=== PATIENT | female | born 1990 | race Caucasian/White ===

== ENCOUNTER 2017-10-21 07:46 | Inpatient (IN) ==
--- NOTE | 2017-10-21 06:03 | OB/GYN History & Physical ---
Date of Encounter: 10/21/17 Time of Encounter: 05:46 Assessment and Plan (1) 40 weeks gestation of Current visit: Yes Status: Acute Labor evaluation (2) Rh negative status during in third trimester Current visit: Yes Status: Acute Both patient and FOB are O negative (3) Gestational diabetes Current visit: Yes Status: Acute Accuchecks recommended in labor Nursery to be notified Qualifiers: Gestational diabetes mellitus control: diet-controlled Trimester: third trimester Qualified Code(s): O24.410 - Gestational diabetes mellitus in , diet controlled History of Present Illness Chief complaint: Spontaneous Labor HPI: Ms. Hudson is a 27 year old female at 40w5d presents to labor and delivery with complaints with contractions increasing in intensity. Patient reports "labor started yesterday at 0500"). Patient denies LOF or VB. Patient reports + FM. Patient is requesting as little intervention as necessary. Patient declined labs in . Labs were completed in 2014. Patient is also a diet controlled GDM. Blood type: O Negative GBS: Negative Past Med Surg Social Fam HX - Past Medical History Source: patient Medical history: no medical history Psychiatric history: no psych history - Past Surgical History Additional surgical history: wisdom teeth, D&C - Social History Smoking Status: Never smoker Alcohol use: none Drug use: none Obstetrical History - Pregnancies : 2 Para: 0 Term: 0 : 0 Ab's: 1 Livin Medications and Allergies Vit/Iron Fumarate/FA [ Tablet] 1 tab PO DAILY 10/21/17 [History ] 3 Allergy/AdvReac Type Severity Reaction Status Date / Time No Known Allergies Allergy Verified 10/21/17 05:43 Review of System OB - Constitutional Constitutional ROS IM: no fatigue, no headache(s) - Gastrointestinal Gastrointestinal: no abdominal pain, no constipation, no diarrhea, no heartburn , no nausea, no vomiting - Genitourinary Genitourinary: no abnormal vaginal bleeding, no dysuria, no flank pain, no urinary frequency, no urinary urgency, no vaginal discharge, no vaginal odor, no vaginal pruritis Exam - Constitutional Constitutional: well developed, well nourished, no acute distress, average body habitus - HEENT HEENT: Normocephaly, Mucus Membranes Moist - Neck Neck exam: full ROM, supple - Lungs Respiratory exam: CTAB - Cardiovascular Cardiovascular exam: RRR, +S1, +S2 - Abdomen Abdomen: Present: bowel sounds normal, gravid, non tender - Extremities Extremities exam: full ROM, normal capillary refill, pedal edema (1+ bilateral lower extremeties) Deep Tendon Reflex Grade: 2+ Normal - Vagina Vagina: Present: normal moisture - Cervix Dilation: 5 Effacement: 90 Station: -1 - Uterus Uterus exam: Present: normal size, normal contour - Anus/Rectum Anus/Rectum: Present: normal perianal skin - Comments Comments: FHR 125 bpm moderate variability +15x15 accels no decels noted. Contractions 1.5 -6 min apart. Cat 1 tracing. Results All other labs normal. - VTE Reasons for not Prescribing Prophylaxis: Treatment not Indicated - Low risk for VTE
[2017-10-21 06:23] LABS: Amphetamine Screen,Urine Negative ng/mL (Cutoff=1000); Barbiturate Screen,Urine Negative ng/mL (Cutoff=200); Benzodiazepines Screen,Urine Negative ng/mL (Cutoff=200); Cannabinoid Screen,Urine Negative ng/mL (Cutoff = 50); Cocaine Screen,Urine Negative ng/mL (Cutoff= 300); Opiate Screen,Urine Negative ng/mL (Cutoff=300); Phencyclidine Screen,Urine Negative ng/mL (Cutoff=25)
[~2017-10-21 07:46] MED LIST: Famotidine 20 MG/2 ML VIAL IVP PRN; Naloxone 0.4 MG/ML INJ IVP PRN; Ondansetron 4 MG/2 ML VIAL IVP PRN; Ringers Solution, Lactated 1,000 ML IVC SCH
[2017-10-21 08:26] LABS: Basophils % 0.1 %; Eosinophils % 0.2 %; Hematocrit 37.8 % (35.3-44.9); Hemoglobin 13.3 g/dL (11.5-15.4); Immature Granulocytes % 0.4 % (0-4); Lymphocytes # 1.3 K/mcL (0.6-4.6); Lymphocytes % 11.5 %; Mean Corpuscular HGB Conc 35.2 g/dL (31.6-35.5); Mean Corpuscular Hemoglobin 33.5 pg (28.0-33.3); Mean Corpuscular Volume 95.2 fL (83.0-100.0); Mean Platelet Volume 9.9 fL (9.4-12.4); Monocytes # 0.5 K/mcL (0.0-1.3); Monocytes % 4.7 %; Neutrophils # 9.3 K/mcL (1.6-8.9); Platelet Count 182 K/mcL (140-400); Red Blood Count 3.97 M/mcL (3.82-4.97); Red Cell Distribution Width 14.1 % (11.5-14.5); Segmented Neutrophils % 83.1 %
--- NOTE | 2017-10-21 12:07 | OB Labor Progress Note ---
Date of Encounter: 10/21/17 Time of Encounter: 10:00 Labor Progress Note - Subjective Subjective: Pt aware of contractions. Reports feeling them every 2-3 minutes. Rates them 5- 6/10. 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
--- NOTE | 2017-10-21 12:09 | OB Labor Progress Note ---
Date of Encounter: 10/21/17 Time of Encounter: 12:07 Labor Progress Note - Subjective Subjective: Reports increase discomfort with contractions - Cervix Cervix: 9/100/+1 - Heart Tones Heart Tones: Auscultation 120s/no decelerations/accelerations present - Gerald Gerald: Reports contractions every minute - Interventions Interventions: SVE Position changes - Plan Plan: Continue expectant management Encourage frequent position changes including toilet and birthing ball Pitocin discussed and patient declines at this time Anticipate vaginal delivery
[2017-10-21] MEDS ORDERED: *HR* Oxytocin 10 UNIT/ML VIAL IM ONE (12:30)
--- NOTE | 2017-10-21 16:52 | OB/GYN Procedure Note ---
Delivery - Delivery Date: 10/21/17 Provider: Anusha Granados Intrapartum events: prolonged labor- > = 20hr Delivery induction: none Delivery monitor: external FHT ([place]) Anesthesia: local Quantitated Blood Loss: 300 - Infant (s) A Infant Delivery Date: 10/21/17 Infant Delivery Time: 15:56 Presentation: vertex Position: OA Route of delivery: Gender: Female Viability: Viable Pounds: 8 Ounces: 4 Weight Gram: 3.73 kg at 1 minute: 8 at 5 mins: 9 Shoulder Dystocia: not encountered Specimens collected: cord blood Placenta: spontaneous Cord: 3 umbilical vessels - Repair Episiotomy: none Laceration Description: Perineal - 1st Degree (3-0 vicryl repaired), Superficial - Complications Delivery complications: none Delivery comments: This is a 27-year-old G2 now P1 who is admitted for active labor. She progressed spontaneously to the second stage of labor she pushed for about an hour and a half. She delivered a viable female , OA over a first-degree laceration. The infant delivered with mom in hands and knees position. Mom then spontaneously turned over to her back and placed the skin to skin underneath her gown. No nuchal cord was identified and no shoulder dystocia was encountered. scores were 8 at 1 minute and 9 at 5 minutes. The weighed 8 lbs. 4 oz. (3730g). The placenta delivered (Guillen) spontaneously, intact, with a three-vessel cord. Inspection revealed a very minor first-degree laceration. The laceration was repaired with a 3-0 Vicryl. The uterus was firm with no active bleeding. The repair was done under local anesthesia. EBL was 300mL. Placenta is to be taken home by the family per the request. Umbilical artery blood gases were not sent. There were no complications during the procedure. Mom and baby are skin to skin and nursing following delivery. - Disposition Mom disposition: stable in LDR O[place]Brien disposition: stable in LDR
[2017-10-21] MEDS ORDERED: Oxytocin 20 units/ LR 1000 mL 20 UNIT/1,000 ML BAG IVC SCH (20:25)
[2017-10-21] MEDS ORDERED: Benzocaine/Menthol 56 GM AEROSOL SPRAY TP PRN (20:25)
[2017-10-21] MEDS ORDERED: Acetaminophen 325 MG TABLET PO PRN (20:25)
[2017-10-21] MEDS ORDERED: Ibuprofen 600 MG TABLET PO PRN (20:25)
[2017-10-22 08:02] VITALS: BP 103/64
[2017-10-22] MEDS ORDERED: Prenatal Vit/FA 1 EACH TABLET PO SCH (09:00)
--- NOTE | 2017-10-22 10:35 | Discharge Summary ---
Date of Encounter: 10/22/17 Time of Encounter: 10:33 - Discharge Diagnosis (1) Vaginal delivery Priority: Primary Status: Acute Comments: Stable, meeting PP milestone, pain well managed, , desires discharge. - Discharge Medications Home Medications: Vit/Iron Fumarate/FA [ Tablet] 1 tab PO DAILY 10/21/17 [History ] Acetaminophen [Tylenol] 650 mg PO Q6HR PRN tablet 10/22/17 [Rx] Benzocaine/Menthol Elbert [Dermoplast Elbert] 1 appl TP QID PRN aerosol 10/22/17 [Rx] Ibuprofen [Motrin] 600 mg PO Q6HR PRN tablet 10/22/17 [Rx] Vit/FA 1 each PO DAILY tablet 10/22/17 [Rx] Allergies/Adverse Reactions: 3 Allergy/AdvReac Type Severity Reaction Status Date / Time No Known Allergies Allergy Verified 10/21/17 05:43 Data Procedures and tests throughout hospitalization: Laboratory Tests 10/21/17 10/21/17 10/21/17 05:30 07:57 19:01 WBC 11.2 H RBC 3.97 Hgb 13.3 Hct 37.8 MCV 95.2 MCH 33.5 H MCHC 35.2 RDW 14.1 Plt Count 182 MPV 9.9 Immature Gran % 0.4 Seg Neutrophils % 83.1 Lymphocytes % 11.5 Monocytes % 4.7 Eosinophils % 0.2 Basophils % 0.1 Neutrophils # 9.3 H Lymphocytes # 1.3 Monocytes # 0.5 Eosinophils # 0.0 Basophils # 0.0 POC Glucose 162 H Urine Opiates Screen Negative Ur Barbiturates Screen Negative Ur Phencyclidine Scrn Negative Ur Amphetamines Screen Negative U Benzodiazepines Scrn Negative Urine Cocaine Screen Negative U Marijuana (THC) Screen Negative Ur Drug Screen Interp See Below Labs on day of discharge: Labs from last 24 hours 10/21/17 19:01 POC Glucose 162 H Date of admission: 10/21/17 09:29 Primary care physician: Dulce Pete CNP Consults: 10/21/17 20:25 Consult to Package Checker [CONS] Routine Comment: Vaginal delivery, consult needed Discharging clinician: Henny Wayne Anticipated date of discharge: 10/22/17 - Patient Status Disposition: Home, Self-Care Condition: Good Functional capacity at discharge: independent ambulation Overall status at discharge: patient is back to baseline - Discharge Instructions Follow Up With: Dulce Pete CNP [Primary Care Provider] - Anusha Granados [Advanced Practice Nurse] - - Diet and Activity Activity: resume usual activities as tolerated Diet: regular diet Hospital Course Reason for admission: active labor Delivery: Episiotomy: none Laceration: 1st degree Other procedures: none complications: none Discharge diagnosis: IUP at term delivered baby: female Hospital course: Delivery - Delivery Date: 10/21/17 Provider: Anusha Granados Intrapartum events: prolonged labor- > = 20hr Delivery induction: none Delivery monitor: external FHT ([place]) Anesthesia: local Quantitated Blood Loss: 300 - (s) Infant A Delivery Date: 10/21/17 Delivery Time: 15:56 Presentation: vertex Position: OA Route of delivery: Gender: Female Viability: Viable Pounds: 8 Ounces: 4 Weight Gram: 3.73 kg at 1 minute: 8 at 5 mins: 9 Shoulder Dystocia: not encountered Specimens collected: cord blood Placenta: spontaneous Cord: 3 umbilical vessels - Repair Episiotomy: none Laceration Description: Perineal - 1st Degree (3-0 vicryl repaired), Superficial - Complications Delivery complications: none Delivery comments: This is a 27-year-old G2 now P1 who is admitted for active labor. She progressed spontaneously to the second stage of labor she pushed for about an hour and a half. She delivered a viable female infant, OA over a first-degree laceration. The delivered with mom in hands and knees position. Mom then spontaneously turned over to her back and placed the skin to skin underneath her gown. No nuchal cord was identified and no shoulder dystocia was encountered. scores were 8 at 1 minute and 9 at 5 minutes. The infant weighed 8 lbs. 4 oz. (3730g). The placenta delivered (Guillen) spontaneously, intact, with a three-vessel cord. Inspection revealed a very minor first-degree laceration. The laceration was repaired with a 3-0 Vicryl. The uterus was firm with no active bleeding. The repair was done under local anesthesia. EBL was 300mL. Placenta is to be taken home by the family per the request. Umbilical artery blood gases were not sent. There were no complications during the procedure. Mom and baby are skin to skin and nursing following delivery. - Disposition Mom disposition: stable in PP and appropriate for discharge. Time Attestation: Total time spent providing and/or coordinating discharge services: Time Spent: Less than 30 minutes Exam - Constitutional Vitals: Temp Pulse Resp BP Pulse Ox 98 F 78 16 103/64 98 10/22/17 08:01 10/22/17 10:00 10/22/17 10:00 10/22/17 08:01 10/22/17 08:01 General appearance IM: A&O X 3 - Respiratory Respiratory exam: Present: CTAB - Cardiovascular Cardiovascular exam IM: Present: RRR - GI/Abdominal GI/Abdominal exam IM: soft - Uterine Tone: Firm Uterus Position: At Umbilicus - Extremities Exam Extremities exam IM: Present: normal capillary refill, normal inspection - Neurological Exam Neurological exam: normal gait, oriented X3 - Psychiatric Additional comments: Reports good mood
== END 2017-10-22 16:58 | disposition home or self-care (01) | DRG 775 ==
LOC: 1NENULAB → 1NENUOBS 20:06
PROVIDERS: ADMIT Advanced Practice Midwife; ATTEND Advanced Practice Midwife

== ENCOUNTER → 2020-02-01 08:30 | Observation (INO) ==
[2020-02-01 06:52] LABS: Bacteria,Urine Few per hpf (None-Few); Bilirubin,Urine Negative (Negative); Blood,Urine Negative (Negative); Clarity,Urine Turbid (Clear); Color,Urine Light-Yellow (Yellow); Glucose,Urine (UA) Normal (Normal); Ketones,Urine Negative (Negative); Leukocyte Esterase,Urine Negative (Negative); Mucus,Urine Few per lpf (None-Few); Nitrite,Urine Negative (Negative); Protein,Urine Negative (Neg-Trace); RBC,Urine 0-3 per hpf (0-3); Specific Gravity,Urine 1.008 (1.010-1.025); Squamous Epithelial Cell,Urine Moderate per hpf (None-Few); Urobilinogen,Urine Normal (Normal); WBC,Urine 0-3 per hpf (0-3)
== END | disposition home or self-care (01) ==
LOC: 1NENULAB
PROVIDERS: ADMIT Registered Nurse; ATTEND Registered Nurse

== ENCOUNTER 2020-02-29 19:55 | Inpatient (IN) ==
[2020-02-29] MEDS ORDERED: Ondansetron 4 MG/2 ML VIAL IVP PRN (19:57)
[2020-02-29] MEDS ORDERED: Metoclopramide 10 MG/2 ML VIAL IVP PRN (19:57)
[2020-02-29] MEDS ORDERED: Famotidine 20 MG/2 ML VIAL IVP PRN (19:57)
[2020-02-29] MEDS ORDERED: Naloxone 0.4 MG/ML INJ IVP PRN (19:57)
[2020-02-29 20:33] LABS: Basophils % 0.1 %; Eosinophils % 0.4 %; Hematocrit 42.6 % (35.3-44.9); Hemoglobin 14.3 g/dL (11.5-15.4); Immature Granulocytes % 0.5 % (0-4); Lymphocytes # 1.9 K/mcL (0.6-4.6); Lymphocytes % 17.2 %; Mean Corpuscular HGB Conc 33.6 g/dL (31.6-35.5); Mean Corpuscular Volume 95.3 fL (83.0-100.0); Mean Platelet Volume 9.4 fL (9.4-12.4); Monocytes % 9.4 %; Neutrophils # 7.8 K/mcL (1.6-8.9); Platelet Count 196 K/mcL (140-400); Red Blood Count 4.47 M/mcL (3.82-4.97); Red Cell Distribution Width 13.8 % (11.5-14.5); Segmented Neutrophils % 72.4 %; White Blood Count 10.8 K/mcL (4.3-11.1)
[2020-02-29 20:53] LABS: Alanine Aminotransferase 14 Units/L (7-52); Aspartate Amino Transferase 18 Units/L (13-39); BUN/Creatinine Ratio 19 (6-26); Blood Urea Nitrogen 13 mg/dL (6-20); Lactate Dehydrogenase 178 Units/L (140-271); Uric Acid 4.3 mg/dL (2.3-7.6); eGFR For African Americans > 60 (> 60); eGFR For Non-African Americans > 60 (> 60)
[2020-02-29] MEDS ORDERED: Ringers Solution, Lactated 1,000 ML ONE (22:02)
[2020-02-29] MEDS ORDERED: Epidural Premix (fent/bupiv) 110 ML EP ONE (22:23)
[2020-02-29] MEDS ORDERED: Ropivacaine/PF 0.2% 20 ML VIAL ONE (22:26)
[2020-03-01] MEDS ORDERED: Acetaminophen 325 MG TABLET PO PRN (04:07)
[2020-03-01] MEDS ORDERED: Ibuprofen 600 MG TABLET PO PRN (04:07)
[2020-03-01] MEDS ORDERED: Benzocaine/Menthol 56 GM AEROSOL SPRAY TP PRN (04:07)
[2020-03-01] MEDS ORDERED: *HR* HYDROcodone/Acet 5/325 mg TABLET PO PRN (04:07)
[2020-03-01] MEDS ORDERED: Rho Immune Globulin 1,500 UNIT SYRINGE IM PRN (04:07)
[2020-03-01] MEDS ORDERED: Lanolin 7 G OINT...G. TP PRN (04:07)
[2020-03-01] MEDS ORDERED: Prenatal Vit/FA 1 EACH TABLET PO SCH (09:00)
[2020-03-01 20:26] VITALS: BP 129/75
== END 2020-03-02 04:00 | disposition home or self-care (01) | DRG 807 ==
LOC: 1NENULAB 19:55 → 1NENUOBS 03-01 04:18
PROVIDERS: ADMIT Advanced Practice Midwife; ATTEND Advanced Practice Midwife